=== PATIENT | male | born 1950 | race Caucasian/White ===

== ENCOUNTER 2024-07-14 18:30 | Emergency (ER) | payer OTHER ==
[2024-07-14 18:49] VITALS: BP 169/80; PULSE 72; RESP 18; TEMP 98.7; BMI 20.7
[2024-07-14] MEDS ORDERED: ACETAMINOPHEN 500 MG TABLET (FP) ONE (20:01)
[2024-07-14] MEDS: ACETAMINOPHEN 500 MG TABLET (FP) PO ONE (20:24)
[2024-07-14] MEDS ORDERED: DIPHTH,PERTUSS(ACELL),TET 0.5 ML DISP.SYRIN IM ONE (20:31)
[2024-07-14] MEDS: DIPHTH,PERTUSS(ACELL),TET 0.5 ML DISP.SYRIN IM ONE (20:36)
== END 2024-07-14 21:16 | disposition home or self-care (01) ==
LOC: JERFT 18:30
PROC: 08Q1XZZ Repair Left Eye, External Approach (ICD-10-PCS; principal; 2024-07-14)
PROC: 3E0234Z Introduction of Serum, Toxoid and Vaccine into Muscle, Percutaneous Approach (ICD-10-PCS; 2024-07-14)
DX: S01.112A Laceration without foreign body of left eyelid and periocular area, initial encounter (principal); W01.0XXA Fall on same level from slipping, tripping and stumbling without subsequent striking against object, initial encounter; Z23 Encounter for immunization
CPT/HCPCS: 70450-TC; 82962; 90715; 99284-25